=== PATIENT | male | born 1955 | race Caucasian/White ===

== ENCOUNTER → 2016-10-27 | Outpatient (CLI) | payer BC ==
[2016-10-27 13:49] LABS: CALCIUM 9.1 mg/dl (8.5-10.1)
[2016-10-27 13:52] LABS: ALT/SGPT 24 U/L (12-78); AST/SGOT 18 U/L (15-37); BLOOD UREA NITROGEN 15 mg/dl (7-18); BUN/CREATININE RATIO 18.3 (10-20); CARBON DIOXIDE 30 mmol/L (21-32); CHLORIDE 105 mmol/L (98-107); CREATININE 0.82 mg/dl (0.60-1.40); GLUCOSE 86 mg/dl (70-99); POTASSIUM 4.3 mmol/L (3.5-5.1); SODIUM 140 mmol/L (136-145)
[2016-10-27 13:56] LABS: ALB/GLOB RATIO 1.1 (0.9-2); ALKALINE PHOSPHATASE 72 U/L (45-117); CHOLESTEROL 223 mg/dl (0-200); CHOLESTEROL/HDL RATIO 3.7; HDL CHOLESTEROL 61 mg/dl; LDL CHOLESTEROL CALCULATED 145 mg/dl; TRIGLYCERIDES 84 mg/dl (0-150); VERY LOW DENSITY LIPOPROT CALC 17 mg/dl
== END | disposition home or self-care (01) ==
LOC: C.LABBC 10:10
PROVIDERS: ATTEND Nurse Practitioner Family
DX: E78.00 Pure hypercholesterolemia, unspecified (principal); E55.9 Vitamin D deficiency, unspecified

== ENCOUNTER → 2017-05-10 | Outpatient (CLI) | payer OTHER ==
--- NOTE | 2017-05-10 15:25 | DIAGNOSTIC IMAGING REPORT ---
MRI OF THE LEFT KNEE CLINICAL HISTORY: Left knee pain. COMPARISON STUDY: No priors. TECHNIQUE: MRI of the left knee was performed utilizing proton density, T1, and T2-weighted sequences in the axial, sagittal, coronal planes. IV contrast was not administered for this examination. Note that interpretation is suboptimal without plain film correlate. FINDINGS: Menisci: There is extensive maceration and degenerative tearing involving the body and posterior horn of the medial meniscus. The tear approaches the meniscal root, and a fragment may be flipped centrally towards the intercondylar notch. The lateral meniscus appears intact. Ligaments: The anterior and posterior cruciate ligaments are intact. The medial and lateral collateral ligaments are within normal limits. Extensor mechanism: The extensor mechanism is intact. Hoffa's fat pad is normal in appearance. Articular cartilage and bone: There is nearly full-thickness fissuring of the articular cartilage along the medial patellar facet. A small full-thickness cartilage defect is identified in the medial patellar facet on axial image #9 and measures up to 7 mm. There is mild associated subchondral marrow edema. There is also cartilage loss in the underlying femoral trochlea. Marginal osteophytes are observed. There is nearly full-thickness cartilage loss along the weightbearing surface in the medial compartment with mild reactive marrow edema. Only minimal thinning is seen in the articular cartilage in the lateral compartment. Joint effusion: There is a small joint effusion. Soft tissues: The musculature surrounding the knee joint is normal in bulk and signal intensity. A small popliteal cyst measures up to 1.8 cm. IMPRESSION: 1. There is maceration with extensive tearing involving the body and posterior horn of the medial meniscus. A fragment is likely flipped centrally towards the intercondylar notch. 2. The lateral meniscus, the cruciate ligaments, and the collateral ligaments appear intact. 3. 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 4. Small joint effusion. Electronically signed by: Erwin Hernandez M.D. 05/10/2017 3:24 PM Dictated Date/Time: 05/10/2017 3:16 PM
== END | disposition home or self-care (01) ==
LOC: C.MRIBC 14:15
PROVIDERS: ATTEND Family Medicine
DX: M25.562 Pain in left knee (principal)

== ENCOUNTER → 2017-07-27 | Outpatient (CLI) | payer OTHER ==
[2017-07-27 11:35] LABS: BLOOD UREA NITROGEN 19 mg/dl (7-18); CALCIUM 8.5 mg/dl (8.5-10.1); CARBON DIOXIDE 28 mmol/L (21-32); CREATININE 0.81 mg/dl (0.60-1.40); GLUCOSE 91 mg/dl (70-99); POTASSIUM 4.1 mmol/L (3.5-5.1); SODIUM 138 mmol/L (136-145)
[2017-07-27 11:38] LABS: CHOLESTEROL 219 mg/dl (0-200); LDL CHOLESTEROL CALCULATED 148 mg/dl
== END | disposition home or self-care (01) ==
LOC: C.LABBC 08:02
PROVIDERS: ATTEND Nurse Practitioner Family
DX: Z00.00 Encounter for general adult medical examination without abnormal findings (principal); E78.00 Pure hypercholesterolemia, unspecified